=== PATIENT | male | born 1950 | race Caucasian/White ===

== ENCOUNTER 2021-07-26 06:22 | Day surgery (SDC) | payer MEDICARE ==
--- NOTE | 2021-07-23 08:42 | HP ---
DATE OF SURGERY: 07/26/2021 HISTORY OF PRESENT ILLNESS: The patient presents for endoscopy. He had a colonoscopy five years ago and had some polyps. He denies GI signs/symptoms at this time. There is no family history of colon cancer. He does also present with some anemia. Will proceed with double endoscopy. PAST MEDICAL HISTORY: Hypertension, heart disease, diabetes. PAST SURGICAL HISTORY: Prostate removal. Appendectomy. Eye surgery. Left arm surgery. ALLERGIES: NKDA. MEDICATIONS: Amlodipine, carvedilol, lisinopril, meloxicam, temazepam, tizanidine. FAMILY HISTORY: None reported. SOCIAL HISTORY: Negative. REVIEW OF SYSTEMS: CONSTITUTIONAL: Denies fever or chills. CHEST: Denies shortness of breath. CVS: Denies chest pain. ABDOMEN: Denies abdominal pain, nausea, vomiting, diarrhea, constipation or rectal bleeding. PHYSICAL EXAMINATION: GENERAL: No acute distress. CHEST: Nonlabored. No shortness of breath. CVS: Regular rate and rhythm. ABDOMEN: Soft, nontender to palpation. IMPRESSION: History of colon polyps and anemia. PLAN: EGD and colonoscopy with Dr. Chester Arriaza. As dictated by Catherine Hebert NP.
[2021-07-26] MEDS ORDERED: Lactated Ringers 1,000 ML IV SCH (07:00)
[2021-07-26] MEDS ORDERED: DIPRIVAN 200 MG/20 ML IV ONE (09:35)
[2021-07-26] MEDS ORDERED: Xylocaine-Mpf 2% 5 Ml Vial ONE (09:35)
--- NOTE | 2021-07-26 11:25 | OP ---
SURGERY DATE/TIME: 07/26/2021 0936 PREOPERATIVE DIAGNOSES: 1) Anemia. 2) History of polyps. POSTOPERATIVE DIAGNOSES: 1) A 2 inch hiatal hernia grade C/D or 3/4 gastroesophageal reflux disease. No signs of active bleeding. 2) Exam limited to 30 cm in sigmoid with severe diverticulosis. A barium enema is pending. PROCEDURES: 1) EGD. 2) Colonoscopy complete to cecum. SURGEON: Chester Arriaza M.D. ANESTHESIA: MAC - Venancio Posada CRNA. COMPLICATIONS: None. CONDITION: Stable. INDICATION: A patient requiring evaluation. DESCRIPTION OF PROCEDURE: Taken to endoscopy. MAC sedation provided. Excellent anesthesia level was present. Pharyngoesophageal junction normal. Esophagus normal down to gastroesophageal area. There was a 2 inch hiatal hernia. There was a 2 cm rim of esophagitis. There was a 4 cm lip or tongue of esophagitis. Esophagitis grade C/D or 3/4. The fundus, body and antrum satisfactory. Pylorus satisfactory. Duodenal bulb satisfactory. Scope looped upon itself, satisfactory. The scope withdrawn. Anal digital examination normal. Scope introduced. Rectum normal. The distal sigmoid had diverticula but was satisfactory. In the mid sigmoid it could not be transversed. It had too much angulation and there was severe diverticulosis. A barium enema has been scheduled for this evening.
[2021-07-26 11:56] VITALS: O2SAT 96
[2021-07-26 13:30] VITALS: BP 135/84; PULSE 70
--- NOTE | 2021-07-26 13:49 | XRAY ---
Indication: Incomplete colonoscopy. No biopsies. Preliminary flyer maker abdomen demonstrates nonspecific nonobstructed bowel gas pattern. Solid organs unremarkable. Osseous structures intact with mild multilevel lumbar degenerative spondylosis and mild dextroscoliosis centered at L2. Barium enema catheter inserted with balloon tip inflated. Barium infusion and air insufflation was performed under gravity and fluoroscopic control. Multiple digital spot and overhead radiographs obtained. There is good opacification and distention of the entire colon. No presacral soft tissue mass. Redundant transverse colon. Cecum lies in a transverse plane. There is mild scattered colonic diverticulosis throughout, greatest in the sigmoid colon. No focal stricture, annular constricting lesions, or filling defect. Small amount of reflux into the terminal ileum. Post evacuation radiograph unremarkable. Impression: Colonic diverticulosis. Remaining double contrast barium enema exam is negative. Approximately 2.1 minute fluoroscopy used.
== END 2021-07-26 13:50 | disposition home or self-care (01) ==
LOC: SDC 06:22
PROVIDERS: ATTEND Surgery
DX: K44.9 Diaphragmatic hernia without obstruction or gangrene (principal); D64.9 Anemia, unspecified; Z86.010 Personal history of colon polyps; K21.9 Gastro-esophageal reflux disease without esophagitis; K57.30 Diverticulosis of large intestine without perforation or abscess without bleeding; K20.90 Esophagitis, unspecified without bleeding; Z79.899 Other long term (current) drug therapy
CPT/HCPCS: 74280; 99100; J2704